=== PATIENT | female | born 1950 | race Hispanic/Latino ===

== ENCOUNTER 2021-10-25 10:33 | Outpatient (CLI) | payer OTHER | END 2021-10-25 10:34 | disposition home or self-care (01) | LOC: CSHULT 10:33 | PROVIDERS: ATTEND Family Medicine | DX: R10.9 Unspecified abdominal pain (principal); R93.2 Abnormal findings on diagnostic imaging of liver and biliary tract | CPT/HCPCS: 76700 ==

== ENCOUNTER 2022-03-18 10:42 | Outpatient (CLI) | payer OTHER | END 2022-03-18 10:43 | disposition home or self-care (01) | LOC: CSHRAD 10:42 | PROVIDERS: ATTEND Family Medicine | DX: M25.511 Pain in right shoulder (principal); M19.011 Primary osteoarthritis, right shoulder ==